=== PATIENT | male | born 1985 | race Caucasian/White ===

== ENCOUNTER 2016-07-15 14:41 | Emergency (ER) | payer OTHER ==
[~2016-07-15] VITALS: Ht 188 cm; Wt 99.8 kg
[2016-07-15 14:56] VITALS: BP 145/96
[2016-07-15] MEDS ORDERED: NORCO 325 MG-7.1 TAB PO (14:56)
--- NOTE | 2016-07-15 15:43 | NUR ---
Patient to bed 02.
--- NOTE | 2016-07-15 15:55 | NUR ---
PT CAME TO ER W/ C/O SIDE PAIN, ABD PAIN, N/D, TESTICLE PAIN, AND BACK PAIN ON AND OFF FOR ONE YEAR, PT. SENT BY PCP TO RULE OUT APPENDICITIS.PT CLAIM HE VOMITTED 1 X LAST NOC.DENIES CP/SOB/.LAST BOWEL MOVEMENT WAS 2 DAYS AGO.AAOX4;NO ACUTE DISTRESS NOTED AT THIS TIME;HOB ELEVATED;NEEDS ATTENDED;ALL MONITORS IN PLACED;SAFETY PRECAUTION INSTITUTED; MADE AWARE OF PT'S CONDITION.
--- NOTE | 2016-07-15 17:20 | NUR ---
Dr. Ann evaluating patient at bedside.
[2016-07-15] MEDS ORDERED: oxyCODONE/APAP 5/325 MG 1 TAB TAB PO ONE (17:30)
--- NOTE | 2016-07-15 17:54 | NUR ---
PT LYING ON BED;NO ACUTE DISTRESS NOTED AT THIS TIME;WILL CONTINUE TO MONITOR PT.
--- NOTE | 2016-07-15 18:10 | NUR ---
URINE DIPSTICK RESULT RELAYED TO DR PANDEY
--- NOTE | 2016-07-15 18:20 | NUR ---
PT WENT TO CT SCAN ACCOMPANIED BY [employer]
--- NOTE | 2016-07-15 18:39 | NUR ---
BACK FROM CT SCAN;NO ACUTE DISTRESS NOTED AT THIS TIME;WILL CONTINUE TO MONITOR PT.
--- NOTE | 2016-07-15 19:14 | NUR ---
REPORT RECEIVED FROM SILVIA, RN
--- NOTE | 2016-07-15 19:35 | NUR ---
Patient discharged with v/s stable. Written and verbal after care instructions given and explained. Patient alert, oriented and verbalized understanding of instructions. Ambulatory with steady gait. All questions addressed prior to discharge. ID band removed. Patient advised to follow up with PMD. Rx of ZOFRAN AND NORCO given. Patient educated on indication of medication including possible reaction and side effects. Opportunity to ask questions provided and answered.
[2016-07-15 19:38] VITALS: BP 128/63
== END 2016-07-15 19:38 | disposition home or self-care (01) ==
LOC: MED 14:54
DX: I88.0 Nonspecific mesenteric lymphadenitis (principal); M54.5 Low back pain; J45.909 Unspecified asthma, uncomplicated

== ENCOUNTER 2016-09-02 14:47 | Emergency (ER) | payer OTHER ==
[~2016-09-02] VITALS: Ht 188 cm; Wt 90.7 kg
[~2016-09-02 14:47] MED LIST: NORCO 325 MG-7.1 TAB PO
--- NOTE | 2016-09-02 15:05 | NUR ---
CALLED PT FOR TRIAGE ASSESSMENT, NO ANSWER.
--- NOTE | 2016-09-02 15:17 | NUR ---
CALLED PT FOR TRIAGE ASSESSMENT X2, NO ANSWER.
[2016-09-02 15:19] VITALS: BP 124/61
--- NOTE | 2016-09-02 15:20 | NUR ---
PT AMBULATED TO BED 4.
[2016-09-02 15:50] VITALS: BP 120/63
--- NOTE | 2016-09-02 15:50 | NUR ---
Patient discharged with v/s stable. Written and verbal after care instructions given and explained. Patient alert, oriented and verbalized understanding of instructions. Ambulatory with steady gait. All questions addressed prior to discharge. ID band removed. Patient advised to follow up with PMD. Rx of MOTRIN AND TYLENOL WITH CODEINE given. Patient educated on indication of medication including possible reaction and side effects. Opportunity to ask questions provided and answered.
== END 2016-09-02 15:50 | disposition home or self-care (01) ==
LOC: MED 14:47
DX: M72.2 Plantar fascial fibromatosis (principal); J45.909 Unspecified asthma, uncomplicated; F17.210 Nicotine dependence, cigarettes, uncomplicated

== ENCOUNTER 2016-10-24 07:57 | Emergency (ER) | payer OTHER ==
[~2016-10-24] VITALS: Ht 188 cm; Wt 91.2 kg
[2016-10-24 08:19] VITALS: BP 134/83
--- NOTE | 2016-10-24 08:28 | NUR ---
PATIENT PRESENTS TO ED WITH C/O RT FOOT PAIN x ONE WEEK. . PT STATES WHEN HE APPLY PRESSURE ON THE FOOT IT GIVES A SHOOTING PAIN. DENIES N/V/D; SKIN IS PINK/WARM/DRY; AAOX4 WITH EVEN AND STEADY GAIT; LUNGS CLEAR BL; HR EVEN AND REGULAR; PT DENIES ANY FEVER, CP, SOB, OR COUGH AT THIS TIME; PATIENT STATES PAIN OF 10/10 AT THIS TIME; VSS; PATIENT POSITIONED FOR COMFORT; HOB ELEVATED; BEDRAILS UP X2; BED DOWN.
[2016-10-24] MEDS ORDERED: KETOROLAC 60 MG/2 ML VIAL IM ONE (08:50)
--- NOTE | 2016-10-24 08:54 | NUR ---
ER AT BEDSIDE
--- NOTE | 2016-10-24 09:19 | NUR ---
PT RESTING ON BED;NO ACUTE DISTRESS NOTED;WILL CONTINUE TO MONITOR PT.
[2016-10-24 10:22] VITALS: BP 128/83
== END 2016-10-24 10:21 | disposition home or self-care (01) ==
LOC: MED 07:57
DX: M79.671 Pain in right foot (principal); J45.909 Unspecified asthma, uncomplicated
CPT/HCPCS: 73630; 96372; 99284; J1885

== ENCOUNTER 2020-12-04 05:09 | Emergency (ER) | payer OTHER ==
[~2020-12-04] VITALS: Ht 188 cm; Wt 84.4 kg
--- NOTE | 2020-12-04 05:14 | NUR ---
Vanessa cobian in [facility] - 12/04/20 at 0515 by NAFISA PT. TAKEN TO BED 7 VIA W/C
[2020-12-04 05:15] VITALS: BP 136/72
--- NOTE | 2020-12-04 05:15 | NUR ---
PT TAKEN TO BED 7
--- NOTE | 2020-12-04 05:30 | NUR ---
PT BIB SELF FOR C/O CHEST AND ABDOMINAL PAIN X 1 HOUR. + N/V. PT REPORTS HX OF ABDOMINAL PAIN WITH UNKNOWN CAUSE. CURRENTLY TAKING SUBOXONE, STARTED 4 DAYS AGO. LAST HEROIN USE WAS 11/29. CHEST PAIN NONRADIATING. +CHILLS, HOT/COLD FLASHES. MED HX: HEROIN USE ALLERGIES: NKA
--- NOTE | 2020-12-04 05:38 | NUR ---
PT WHEELED TO RR TO VOMIT.
[2020-12-04] MEDS ORDERED: ONDANSETRON 4 MG ODT PO ONE (05:45)
--- NOTE | 2020-12-04 05:48 | NUR ---
Dr. Paris examining patient.
[2020-12-04] MEDS ORDERED: ONDANSETRON 4 MG/2 ML VIAL IVP ONE ×2 (05:55→06:55)
[2020-12-04] MEDS ORDERED: NACL 0.9% 1,000 ML IV SCH (05:55)
[2020-12-04] MEDS ORDERED: KETOROLAC 30 MG/ML VIAL IVP ONE (05:55)
[2020-12-04 06:04] LABS: BASOPHILS % (AUTO) 0.2 % (0.0-2.0); EOSINOPHILS # (AUTO) 0.1 K/uL (0-0.4); EOSINOPHILS % (AUTO) 0.5 % (0.0-4.0); HEMOGLOBIN 14.7 g/dL (12.0-18.0); LYMPHOCYTES # (AUTO) 1.4 K/uL (2.0-11.5); MEAN CORPUSCULAR HEMOGLOBIN 31 pg (27-31); MEAN CORPUSCULAR HGB CONC 34 g/dL (33-37); MEAN CORPUSCULAR VOLUME 91.4 fL (80-94); MONOCYTES # (AUTO) 0.6 K/uL (0.8-1.0); MONOCYTES % (AUTO) 5.5 % (1.7-9.3); NEUTROPHILS # (AUTO) 9.6 K/uL (1.8-7.7); NEUTROPHILS % (AUTO) 81.8 % (42.2-75.2); PLATELET COUNT (AUTO) 253 K/uL (140-450); RED BLOOD CELL COUNT(AUTO) 4.81 MIL/uL (4.20-6.10); RED CELL DISTRIBUTION WIDTH 13.6 % (11.6-13.7); WHITE BLOOD COUNT (AUTO) 11.7 K/uL (4.8-10.8)
[2020-12-04 06:18] LABS: ALBUMIN 3.8 g/dL (3.4-5.0); ANION GAP 9.9 (8-16); CARBON DIOXIDE 29.8 mmol/L (21-32); POTASSIUM 3.7 mmol/L (3.5-5.1); TOTAL BILIRUBIN 0.8 mg/dL (0.0-1.0)
--- NOTE | 2020-12-04 06:21 | NUR ---
Vanessa cobian in [facility] - 12/04/20 at 0621 by JESSICA PT TAKEN TO CT
--- NOTE | 2020-12-04 06:21 | NUR ---
PT TAKEN TO CT VIA RNIMO.
--- NOTE | 2020-12-04 06:32 | NUR ---
PT RETURN FROM CT
[2020-12-04] MEDS ORDERED: buprenorphine HCL 2 MG sublingual tab SL ONE (06:55)
[2020-12-04] MEDS ORDERED: CLONIDINE HYDROCHLORIDE 0.1 MG TAB PO ONE (06:55)
--- NOTE | 2020-12-04 07:20 | NUR ---
REPORT GIVEN TO BARTOLO ROBERTO. TRANSFER OF CARE AT THIS TIME.
--- NOTE | 2020-12-04 07:20 | NUR ---
REPORT RECIEVED FROM BARTOLO JEAN BAPTISTE. TRANSFER OF CARE RECIEVED
--- NOTE | 2020-12-04 07:33 | NUR ---
PT CURRENTLY RESTING IN POSITION IN BED DUE TO PAIN. VITAL SIGNS STABLE. BED IN LOWEST POSITION. SIDERAIL X2 UP. WILL CONTINUE TO MONITOR
--- NOTE | 2020-12-04 07:34 | NUR ---
PT MOTHER BEDSIDE WITH PT
[2020-12-04] MEDS ORDERED: DOCUSATE SODIUM 100 MG GELCAP PO PRN (07:35)
--- NOTE | 2020-12-04 07:59 | NUR ---
PT AMBULATED TO RESTROOM. GAIT STEADY
--- NOTE | 2020-12-04 08:08 | NUR ---
PT AMBULATED TO BED 7. GAIT STEADY
[2020-12-04] MEDS ORDERED: DOCU-299 PO (08:23)
[2020-12-04] MEDS ORDERED: SENN-72 PO (08:23)
[2020-12-04 08:33] VITALS: BP 124/68
[2020-12-04] MEDS ORDERED: CLON0.1T46 TD (08:34)
[2020-12-04] MEDS ORDERED: BUPR1FIL SL (08:34)
--- NOTE | 2020-12-04 08:41 | NUR ---
Patient discharged with v/s stable. Written and verbal after care instructions given and explained. Patient alert, oriented and verbalized understanding of instructions. Ambulatory with steady gait. All questions addressed prior to discharge. ID band removed. Patient advised to follow up with PMD. Rx of COLACE 100 MG PO BID AND SENNA 8.6 MG PO BID given. Patient educated on indication of medication including possible reaction and side effects. Opportunity to ask questions provided and answered.
== END 2020-12-04 08:41 | disposition home or self-care (01) ==
LOC: MED 05:09
DX: R10.13 Epigastric pain (principal); R11.2 Nausea with vomiting, unspecified; R07.9 Chest pain, unspecified; J45.909 Unspecified asthma, uncomplicated; F17.200 Nicotine dependence, unspecified, uncomplicated; F11.90 Opioid use, unspecified, uncomplicated
CPT/HCPCS: 36415; 74176; 80053; 83690; 85025; 96361; 96374; 96375; 96376; 99284; J1885; J2405; J7030; Q0162